=== PATIENT | male | born 2000 | race Two or more races ===

== ENCOUNTER → 2025-01-14 | Outpatient (CLI) | payer MEDICAID, SELFPAY ==
--- NOTE | 2025-01-14 13:00 | XR_ITS ---
Examination: Ultrasound soft tissue extremity, right TECHNIQUE: Grayscale sonographic images right groin Date and time: January 14, 2025, 1328 hours INDICATIONS: History right inguinal hernia 5 months with right groin pain 2 months FINDINGS: Right groin hernia defect 5.2 x 2.4 x 3.3 cm IMPRESSION: Right inguinal hernia 5.2 x 2.4 x 3.3 cm
== END | disposition home or self-care (01) ==
PROVIDERS: Referring Provider Nurse Practitioner; Visit Provider Nurse Practitioner
DX: K40.90 Unilateral inguinal hernia, without obstruction or gangrene, not specified as recurrent (principal)
CPT/HCPCS: 76882